=== PATIENT | female | born 1990 | race African-American/Black ===

== ENCOUNTER 2018-11-02 15:38 | Emergency (ER) | payer OTHER, SELFPAY ==
[2018-11-02 16:26] LABS: Pregnancy Test - Urine (BHCG) Negative (Negative); Pregu Control Background? CLEAR/WHITE (CLR/WHITE); Pregu Control Bar Appear? YES (CONTROL BAR); Specific Gravity 1.019 (1.002-1.036)
[2018-11-02 16:27] LABS: Bilirubin Negative (Negative); Blood, Urine Negative (Negative); Clarity Slightly Cloudy (Clear); Glucose, Urine (Dipstick) Negative (Negative); Leukocyte Negative (Negative); Nitrite Negative (Negative); Protein, Urine (Dipstick) Negative (Neg-Trace); Urobilinogen 0.2 mg/dL (Less than 2)
[2018-11-02 17:44] LABS: #Basophils 0.1 thou/uL (0.0-0.2); #Lymphocytes 3.2 thou/uL (1.20-3.40); #Monocytes 0.4 thou/uL (0.11-0.59); #Neutrophils 3.8 thou/uL (1.40-6.50); %Basophils 1.4 % (0.0-1.0); %Eosinophils 0.5 % (0.0-10.0); %Lymphocytes 42.6 % (21.0-51.0); %Monocytes 4.7 % (0.0-10.0); %Neutrophils 50.9 % (42.0-75.0); Hemoglobin 12.7 g/dL (12.0-16.0); Mean Corpuscular HGB CONC 32.6 g/dL (32.0-36.0); Mean Corpuscular Hemoglobin 27.1 pg (27.0-31.0); Mean Corpuscular Volume 83.3 fL (78.0-98.0); Mean Platelet Volume 9.7 fL (7.4-10.4); Platelet Count 275 thou/uL (130-400); RBC Distribution Width 12.7 % (11.5-14.5); Red Blood Cell (RBC) Count 4.69 mill/uL (4.20-5.40); White Blood Cell (WBC) Count 7.4 thou/uL (4.8-10.8)
[2018-11-02] MEDS ORDERED: Ketorolac Tromethamine 30 MG/ML VIAL ONE (17:52)
[2018-11-02 17:56] LABS: Anion Gap 13 mmol/L (10-20); BUN (Urea Nitrogen) 9 mg/dL (7.0-18.7); Calc. Creatinine Clearance 0 mL/min (70-130); Calcium 9.4 mg/dL (7.8-10.44); Carbon Dioxide 25 mmol/L (22-29); Chloride 104 mmol/L (98-107); Estimated GFR-MDRD Greater than 90; Glucose 80 mg/dL (70-105); Potassium 3.4 mmol/L (3.5-5.1); Sodium 139 mmol/L (136-145)
--- NOTE | 2018-11-02 18:13 | RAD ---
TWO VIEWS LUMBOSACRAL SPINE: Comparison: None. History: Low back pain radiating down both legs for a couple of weeks. FINDINGS: Two views of the lumbosacral spine shows normal height and alignment of the vertebral bodies and inte rvertebral discs without fracture or subluxation. No degenerative changes are seen. IMPRESSION: Unremarkable exam. POS: To
[2018-11-02] MEDS ORDERED: Morphine 10 MG/ML VIAL ONE (20:07)
--- NOTE | 2018-11-02 21:20 | MRI ---
MRI LUMBAR SPINE WITH AND WITHOUT IV CONTRAST: HISTORY: Back pain. Bilateral lower extremity paresthesias. Elevated ESR. Right low back pain radiating to the right leg with paresthesias to the bilateral legs, from the knees distally. No injury. UTI a fe w weeks ago, which has been treated. No current dysuria, urinary retention, or fecal incontinence. No fever. Exam requested to rule out epidural abscess. FINDINGS: The vertebral body heights and marrow signal are maintained. The disk spaces, signal, and height are also maintained. No focal disk herniation, central canal stenosis, or neural foraminal stenosis is seen. The conus medullaris ends at L1. No abnormal post contrast enhancement is seen. No epidural fluid collection is identified. The paraspinal musculature is normal. IMPRESSION: No significant abnormalities are identified. POS: SEPIDEH
== END 2018-11-02 21:25 | disposition home or self-care (01) ==
LOC: SCSER 15:38
DX: K52.9 Noninfective gastroenteritis and colitis, unspecified (principal); I47.1 Supraventricular tachycardia
CPT/HCPCS: 36415; 72100; 72158; 80048; 81003; 81025; 85025; 85652; J1885; J2270

== ENCOUNTER 2019-01-12 17:37 | Emergency (ER) | payer SELFPAY ==
[2019-01-12] MEDS ORDERED: Acetaminophen 500 MG TAB ONE (18:17)
[2019-01-12 18:25] LABS: #Eosinphils 0.1 thou/uL (0.0-0.7); #Lymphocytes 3.4 thou/uL (1.20-3.40); #Monocytes 0.6 thou/uL (0.11-0.59); #Neutrophils 4.2 thou/uL (1.40-6.50); %Basophils 0.5 % (0.0-1.0); %Eosinophils 1.2 % (0.0-10.0); %Lymphocytes 40.9 % (21.0-51.0); %Monocytes 7.4 % (0.0-10.0); Hemoglobin 11.6 g/dL (12.0-16.0); Mean Corpuscular HGB CONC 33.3 g/dL (32.0-36.0); Mean Corpuscular Hemoglobin 28.8 pg (27.0-31.0); Mean Corpuscular Volume 86.4 fL (78.0-98.0); Mean Platelet Volume 8.9 fL (7.4-10.4); Platelet Count 245 thou/uL (130-400); RBC Distribution Width 12.1 % (11.5-14.5); Red Blood Cell (RBC) Count 4.01 mill/uL (4.20-5.40); White Blood Cell (WBC) Count 8.3 thou/uL (4.8-10.8)
[2019-01-12 18:41] LABS: Bacteria/HPF None Seen HPF (None Seen); Bilirubin Negative (Negative); Blood, Urine Negative (Negative); Clarity Clear (Clear); Glucose, Urine (Dipstick) Normal (Negative); Leukocyte Negative Leu/uL (Negative); Nitrite Negative (Negative); Protein, Urine (Dipstick) 30 mg/dL (Neg-Trace); RBC/HPF 0-3 HPF (0-3); WBC/HPF 0-3 HPF (0-3)
--- NOTE | 2019-01-12 18:59 | ULT ---
EXAM: Pelvic ultrasound HISTORY: Pelvic pain COMPARISON: None TECHNIQUE: Multiple grayscale and color Doppler images were obtained in a transabdominal and transvag inal pelvic ultrasound. Spectral analysis of the Doppler waveforms of the ovaries were performed. FINDINGS: CERVIX: No evidence of nabothian cysts. UTERUS: There is a questionable small anechoic gestational sac within the uterus. This has a mean sac diameter of 0.46 cm which would estimate gestational age of 5 weeks 2 days. No pole or yolk sac are seen at this time. No free fluid is seen in the pelvis. RIGHT OVARY: Normal flow without focal mass. LEFT OVARY: Normal flow without focal mass. IMPRESSION: Possible early intrauterine
[2019-01-14 21:04] LABS: Chlamydia by PCR Not Detected (NotDetected); GC by PCR Not Detected (NotDetected)
== END 2019-01-12 20:41 | disposition home or self-care (01) ==
LOC: ERS 17:37
DX: O99.89 Other specified diseases and conditions complicating pregnancy, childbirth and the puerperium (principal); R10.30 Lower abdominal pain, unspecified; O99.281 Endocrine, nutritional and metabolic diseases complicating pregnancy, first trimester; E78.5 Hyperlipidemia, unspecified; F41.9 Anxiety disorder, unspecified; F32.9 Major depressive disorder, single episode, unspecified; Z79.899 Other long term (current) drug therapy
CPT/HCPCS: 36415; 51701; 76856; 81003; 81015; 84702; 85025; 86900; 86901; 87480; 87491; 87510; 87591; 87660; A4353

== ENCOUNTER 2019-01-31 12:27 | Emergency (ER) | payer MEDICAID, OTHER ==
[2019-01-31] MEDS ORDERED: Promethazine HCl 25 MG/ML VIAL ONE (13:08)
[2019-01-31 13:25] LABS: #Eosinphils 0.1 thou/uL (0.0-0.7); #Lymphocytes 2.7 thou/uL (1.20-3.40); #Monocytes 0.6 thou/uL (0.11-0.59); #Neutrophils 4.3 thou/uL (1.40-6.50); %Basophils 0.6 % (0.0-1.0); %Eosinophils 0.7 % (0.0-10.0); %Lymphocytes 34.8 % (21.0-51.0); %Monocytes 7.2 % (0.0-10.0); %Neutrophils 56.7 % (42.0-75.0); Hemoglobin 12.1 g/dL (12.0-16.0); Mean Corpuscular HGB CONC 34.4 g/dL (32.0-36.0); Mean Corpuscular Hemoglobin 28.8 pg (27.0-31.0); Mean Corpuscular Volume 83.7 fL (78.0-98.0); Mean Platelet Volume 8.8 fL (7.4-10.4); Platelet Count 255 thou/uL (130-400); RBC Distribution Width 11.5 % (11.5-14.5); Red Blood Cell (RBC) Count 4.19 mill/uL (4.20-5.40); White Blood Cell (WBC) Count 7.6 thou/uL (4.8-10.8)
[2019-01-31 13:35] LABS: Bilirubin Negative (Negative); Blood, Urine Negative (Negative); Clarity Clear (Clear); Glucose, Urine (Dipstick) Normal (Negative); Leukocyte Negative Leu/uL (Negative); Nitrite Negative (Negative); Protein, Urine (Dipstick) 10 mg/dL (Neg-Trace); Urobilinogen Normal mg/dL (Less than 2)
[2019-01-31 13:46] LABS: ALT (SGPT) 10 U/L (8-55); AST (SGOT) 13 U/L (5-34); Albumin 3.9 g/dL (3.5-5.0); Alkaline Phosphatase 54 U/L (40-110); Anion Gap 11 mmol/L (10-20); BUN (Urea Nitrogen) 5 mg/dL (7.0-18.7); Bilirubin, Total 0.2 mg/dL (0.2-1.2); Calc. Creatinine Clearance 0 mL/min (70-130); Calcium 9.2 mg/dL (7.8-10.44); Carbon Dioxide 23 mmol/L (22-29); Chloride 104 mmol/L (98-107); Estimated GFR-MDRD Greater than 90; Globulin 3.4 g/dL (2.4-3.5); Glucose 77 mg/dL (70-105); Potassium 3.2 mmol/L (3.5-5.1); Protein, Total 7.3 g/dL (6.0-8.3); Sodium 135 mmol/L (136-145)
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
== END 2019-01-31 16:17 | disposition home or self-care (01) ==
LOC: ERS 12:27
DX: O21.1 Hyperemesis gravidarum with metabolic disturbance (principal); E86.0 Dehydration; E78.5 Hyperlipidemia, unspecified; E78.00 Pure hypercholesterolemia, unspecified; O99.341 Other mental disorders complicating pregnancy, first trimester; F41.9 Anxiety disorder, unspecified; F32.9 Major depressive disorder, single episode, unspecified; Z3A.01 Less than 8 weeks gestation of pregnancy
CPT/HCPCS: 76856; 80053; 81003; 84702; 85025; 93976; 96361; 96365; J2550

== ENCOUNTER 2019-02-04 07:48 | Emergency (ER) | payer OTHER ==
[2019-02-04 08:11] LABS: #Eosinphils 0.1 thou/uL (0.0-0.7); #Monocytes 0.4 thou/uL (0.11-0.59); #Neutrophils 4.1 thou/uL (1.40-6.50); %Basophils 0.5 % (0.0-1.0); %Eosinophils 0.8 % (0.0-10.0); %Lymphocytes 30.2 % (21.0-51.0); %Monocytes 6.5 % (0.0-10.0); %Neutrophils 62.1 % (42.0-75.0); Hemoglobin 11.9 g/dL (12.0-16.0); Mean Corpuscular HGB CONC 34.5 g/dL (32.0-36.0); Mean Corpuscular Hemoglobin 28.9 pg (27.0-31.0); Mean Corpuscular Volume 83.9 fL (78.0-98.0); Mean Platelet Volume 8.6 fL (7.4-10.4); Platelet Count 257 thou/uL (130-400); RBC Distribution Width 11.8 % (11.5-14.5); Red Blood Cell (RBC) Count 4.11 mill/uL (4.20-5.40); White Blood Cell (WBC) Count 6.6 thou/uL (4.8-10.8)
[2019-02-04 08:30] LABS: ALT (SGPT) 10 U/L (8-55); AST (SGOT) 12 U/L (5-34); Albumin 3.6 g/dL (3.5-5.0); Alkaline Phosphatase 48 U/L (40-110); Anion Gap 9 mmol/L (10-20); BUN (Urea Nitrogen) 4 mg/dL (7.0-18.7); Bilirubin, Total 0.3 mg/dL (0.2-1.2); Calc. Creatinine Clearance 0 mL/min (70-130); Calcium 8.8 mg/dL (7.8-10.44); Carbon Dioxide 25 mmol/L (22-29); Chloride 105 mmol/L (98-107); Estimated GFR-MDRD Greater than 90; Globulin 3.3 g/dL (2.4-3.5); Glucose 85 mg/dL (70-105); Potassium 3.6 mmol/L (3.5-5.1); Protein, Total 6.9 g/dL (6.0-8.3); Sodium 135 mmol/L (136-145)
[2019-02-04] MEDS ORDERED: Promethazine HCl 25 MG/ML VIAL ONE (08:40)
--- NOTE | 2019-02-04 09:39 | ULT ---
PELVIC ULTRASOUND: HISTORY: patient. Fullness pain and nausea. COMPARISON: 01/31/2019. TECHNIQUE: Transabdominal imaging of the pelvis is performed. Ovaries are interrogated with grayscale, color bacilio w, Doppler imaging and spectral waveform analysis. FINDINGS: Uterus is identified measuring 11.5 x 7.6 x 8.2 cm. No myometrial masses. Single intrauterine gestation with heart tones of 137 bpm. There is a yolk sac. Gestational sac diameter is 3.25 cm corresponding to gestational age of 8 weeks 3 days. [place]-rump length is 1.69 cm corresponding to a gestational age of 8 weeks 1 day. There are 2 areas o f hypoechogenicity adjacent to the gestational sac suggesting subchorionic hemorrhage. Largest focus appears to be 1.1 x 3.4 x 0.7 cm. Left ovary has a normal echotexture measuring 3.6 x 2.7 x 2.8 cm. Right ovary is not appreciated. No masses or fluid in the right adnexa. Ovarian Doppler: Vascular flow to left. IMPRESSION: 1. Single intrauterine gestation with heart tones. Gestational age by crown-rump length is 8 we eks 1 day. 2. Subchorionic hemorrhage. Transcribed Date/Time: 02/04/2019 10:12 AM
--- NOTE | 2019-02-04 09:47 | RAD ---
PORTABLE CHEST ONE VIEW: 02/04/2019 8:15 a.m. HISTORY: Chest pain. The patient is 8 weeks' . COMPARISON: 03/14/2015 FINDINGS: The heart size is normal. The lungs are well expanded without focal areas of consolidation, pneumoth oraces or pleural effusions. IMPRESSION: No radiographic evidence of acute cardiopulmonary process. POS: OFF
[2019-02-04] MEDS ORDERED: Morphine 4 MG/ML VIAL ONE (11:52)
[2019-02-04] MEDS ORDERED: Acetaminophen 325 MG TAB ONE (11:52)
[2019-02-04] MEDS ORDERED: HYDROcodone/Acetaminophen 10/325 mg Tablet ONE (12:47)
--- NOTE | 2019-02-07 02:48 | EKG ---
Test Reason : Blood Pressure : / mmHG Vent. Rate : 098 BPM Atrial Rate : 098 BPM P-R Int : 152 ms QRS Dur : 068 ms QT Int : 340 ms P-R-T Axes : 050 002 -06 degrees QTc Int : 434 ms Sinus rhythm with marked sinus arrhythmia Possible Left atrial enlargement Cannot rule out Anterior infarct , age undetermined Abnormal ECG Confirmed by MARLENI CALLES, PEDRO ([id number]), index editor ОЛЬГА MORRIS ([id number]) on 02/07/2019 2:48:24 AM Referred By: Confirmed By:PEDRO YEPEZ MD
== END 2019-02-04 13:40 | disposition home or self-care (01) ==
LOC: ERS 07:48
DX: O99.89 Other specified diseases and conditions complicating pregnancy, childbirth and the puerperium (principal); R10.9 Unspecified abdominal pain; R11.2 Nausea with vomiting, unspecified; Z3A.08 8 weeks gestation of pregnancy
CPT/HCPCS: 36415; 71045; 76856; 80053; 83690; 84702; 85025; 93005; 93976; 96361; 96365; J2270; J2550

== ENCOUNTER 2019-02-07 19:33 | Emergency (ER) | payer OTHER ==
[2019-02-07 19:57] LABS: Bilirubin Negative (Negative); Blood, Urine Negative (Negative); Clarity Clear (Clear); Glucose, Urine (Dipstick) Normal (Negative); Leukocyte Negative Leu/uL (Negative); Nitrite Negative (Negative); Protein, Urine (Dipstick) Negative (Neg-Trace)
[2019-02-07 20:50] LABS: #Basophils 0.1 thou/uL (0.0-0.2); #Eosinphils 0.1 thou/uL (0.0-0.7); #Lymphocytes 2.6 thou/uL (1.20-3.40); #Monocytes 0.8 thou/uL (0.11-0.59); #Neutrophils 4.7 thou/uL (1.40-6.50); %Basophils 0.7 % (0.0-1.0); %Eosinophils 0.8 % (0.0-10.0); %Lymphocytes 31.9 % (21.0-51.0); %Monocytes 9.1 % (0.0-10.0); %Neutrophils 57.5 % (42.0-75.0); Mean Corpuscular Hemoglobin 28.9 pg (27.0-31.0); Mean Corpuscular Volume 84.9 fL (78.0-98.0); Mean Platelet Volume 8.3 fL (7.4-10.4); Platelet Count 257 thou/uL (130-400); RBC Distribution Width 11.7 % (11.5-14.5); Red Blood Cell (RBC) Count 3.81 mill/uL (4.20-5.40); White Blood Cell (WBC) Count 8.2 thou/uL (4.8-10.8)
[2019-02-07 21:01] LABS: ALT (SGPT) 14 U/L (8-55); AST (SGOT) 14 U/L (5-34); Albumin 3.6 g/dL (3.5-5.0); Alkaline Phosphatase 50 U/L (40-110); Anion Gap 9 mmol/L (10-20); BUN (Urea Nitrogen) 7 mg/dL (7.0-18.7); Bilirubin, Total Less than 0.2 mg/dL (0.2-1.2); Calc. Creatinine Clearance 0 mL/min (70-130); Calcium 8.8 mg/dL (7.8-10.44); Carbon Dioxide 23 mmol/L (22-29); Chloride 105 mmol/L (98-107); Estimated GFR-MDRD Greater than 90; Globulin 3.2 g/dL (2.4-3.5); Glucose 82 mg/dL (70-105); Lipase 20 U/L (8-78); Protein, Total 6.8 g/dL (6.0-8.3); Sodium 133 mmol/L (136-145)
[2019-02-07] MEDS ORDERED: diphenhydrAMINE 50 MG/ML VIAL ONE (21:59)
== END 2019-02-07 23:14 | disposition home or self-care (01) ==
LOC: ERS 19:33
DX: O99.89 Other specified diseases and conditions complicating pregnancy, childbirth and the puerperium (principal); R10.30 Lower abdominal pain, unspecified; O21.9 Vomiting of pregnancy, unspecified; Z3A.01 Less than 8 weeks gestation of pregnancy
CPT/HCPCS: 36415; 80053; 81003; 83690; 85025; 96361; 96374; J1200

== ENCOUNTER 2019-02-11 14:59 | Inpatient (IN) | payer OTHER ==
[2019-02-11 15:39] LABS: #Basophils 0.1 thou/uL (0.0-0.2); #Lymphocytes 2.5 thou/uL (1.20-3.40); #Monocytes 0.7 thou/uL (0.11-0.59); #Neutrophils 5.1 thou/uL (1.40-6.50); %Basophils 0.7 % (0.0-1.0); %Eosinophils 0.5 % (0.0-10.0); %Lymphocytes 30.2 % (21.0-51.0); %Monocytes 7.9 % (0.0-10.0); %Neutrophils 60.6 % (42.0-75.0); Hemoglobin 12.9 g/dL (12.0-16.0); Mean Corpuscular HGB CONC 34.2 g/dL (32.0-36.0); Mean Corpuscular Hemoglobin 28.8 pg (27.0-31.0); Mean Corpuscular Volume 84.4 fL (78.0-98.0); Mean Platelet Volume 8.2 fL (7.4-10.4); Platelet Count 312 thou/uL (130-400); RBC Distribution Width 11.8 % (11.5-14.5); Red Blood Cell (RBC) Count 4.49 mill/uL (4.20-5.40); White Blood Cell (WBC) Count 8.3 thou/uL (4.8-10.8)
[2019-02-11 16:01] LABS: ALT (SGPT) 22 U/L (8-55); AST (SGOT) 20 U/L (5-34); Albumin 4.1 g/dL (3.5-5.0); Alkaline Phosphatase 66 U/L (40-110); Anion Gap 10 mmol/L (10-20); BUN (Urea Nitrogen) 6 mg/dL (7.0-18.7); Bilirubin, Total 0.2 mg/dL (0.2-1.2); Calc. Creatinine Clearance 0 mL/min (70-130); Calcium 9.1 mg/dL (7.8-10.44); Carbon Dioxide 25 mmol/L (22-29); Chloride 101 mmol/L (98-107); Estimated GFR-MDRD Greater than 90; Globulin 3.8 g/dL (2.4-3.5); Glucose 98 mg/dL (70-105); Potassium 3.3 mmol/L (3.5-5.1); Protein, Total 7.9 g/dL (6.0-8.3); Sodium 133 mmol/L (136-145)
[2019-02-11] MEDS ORDERED: Promethazine HCl 25 MG/ML VIAL ONE (16:01)
[2019-02-11 16:28] LABS: Bilirubin Negative (Negative); Blood, Urine Negative (Negative); Clarity Clear (Clear); Glucose, Urine (Dipstick) Normal (Negative); Leukocyte Negative Leu/uL (Negative); Nitrite Negative (Negative); Protein, Urine (Dipstick) 20 mg/dL (Neg-Trace); Urobilinogen 3 mg/dL (Less than 2)
[2019-02-11 19:49] VITALS: BMI 34.7
[2019-02-11] MEDS ORDERED: Promethazine HCl 25 MG/ML VIAL IM PRN (20:08)
[2019-02-11] MEDS ORDERED: Zolpidem Tartrate 5 MG TAB PO PRN (20:08)
--- NOTE | 2019-02-11 20:14 | PDOC.LDHP ---
Labor and Delivery H&P Chief complaint: other (N/V x 3 weeks) HPI: 28 yo BF presents c/o N/V x 2-3 weeks with multiple visits to ER> Denies bleeding or cramping. Current gestational age (weeks): 9 Dating criteria: last menstrual period Grav: 5 Para: 3 OB History Details: PNC with Dr. Euceda at [facility], tx. with Phenergan and B12 this . H/o of x3, all . Current complications: other (as above) Abnormal US findings: No Past Medical History: none Current medications: pre-roberto vitamins, other (Phenergan, B12) Previous surgical history: dilation and curettage Allergies/Adverse Reactions: Allergies Allergy/AdvReac Type Severity Reaction Status Date / Time ondansetron [From Zofran] Allergy Verified 02/11/19 19:29 Penicillins Allergy Verified 02/11/19 19:29 tramadol Allergy Verified 02/11/19 19:29 Social history: none - Physical Exam Vital signs reviewed and normal: yes General: resting Heart: RRR Lungs: CTAB Extremeties: no edema [place] contractions every: N/A - Assessment 9 week IUP hyperemesis with multiple visits to ER - Plan -: OBS for IV fluids and antiemetics, observe closely. Dr. Euceda notified.
[2019-02-11] MEDS ORDERED: Lactated Ringer's 1,000 ML IV SCH (20:15)
[2019-02-11] MEDS: Famotidine/PF 20 mg/2ml Vial SLOW IVP SCH (21:06)
[2019-02-11] MEDS: Metoclopramide HCl 10 MG/2 ML VIAL IVP SCH (21:06)
[2019-02-11] MEDS: Dextrose 5%-Lactated Ringers 1,000 ML IV SCH (21:06)
--- NOTE | 2019-02-11 21:13 | PDOC.EVN ---
Event Note - Event Note Event Note: Labs on admit: WBC= 8.3, H/H= 12.9/37.9, plts= 312K Au=450, K= 3.3, Cr= .73, glucose=98, T. bili= .2, AST/ALT= 20/22 Urine- trace ketones.
[2019-02-12] MEDS: Dextrose 5%-Lactated Ringers 1,000 ML IV SCH ×3 (04:08→19:46)
[2019-02-12 05:58] LABS: ALT (SGPT) 16 U/L (8-55); AST (SGOT) 14 U/L (5-34); Alkaline Phosphatase 48 U/L (40-110); Anion Gap 9 mmol/L (10-20); BUN (Urea Nitrogen) 4 mg/dL (7.0-18.7); Bilirubin, Total 0.3 mg/dL (0.2-1.2); Calc. Creatinine Clearance 168 mL/min (70-130); Calcium 7.9 mg/dL (7.8-10.44); Carbon Dioxide 22 mmol/L (22-29); Chloride 108 mmol/L (98-107); Estimated GFR-MDRD Greater than 90; Globulin 2.9 g/dL (2.4-3.5); Glucose 111 mg/dL (70-105); Potassium 3.6 mmol/L (3.5-5.1); Protein, Total 5.9 g/dL (6.0-8.3); Sodium 135 mmol/L (136-145)
[2019-02-12] MEDS: Acetaminophen 325 MG TAB PO PRN (05:58)
--- NOTE | 2019-02-12 06:49 | PDOC.EVN ---
Event Note - Event Note Event Note: 9 2/7 weeks. Feeling only some better this AM. VSS AF. Abdomen is soft and NT. No vaginal bleeding. Labs return this AM with Na and K in normal range. Plan: Advance to clears as tolerated. Home when tolerating PO.
[2019-02-12] MEDS ORDERED: Multivit, Adult Inj 10 ML VIAL IV SCH (08:15)
[2019-02-12] MEDS ORDERED: Acetaminophen 1,000 MG in Premix Bag 1 BAG IVPB PRN (08:24)
[2019-02-12] MEDS ORDERED: LACTATED RINGERS IV SCH (08:30)
[2019-02-12] MEDS ORDERED: MULTIVITAMINS IV SCH (08:30)
[2019-02-12] MEDS ORDERED: DEXTROSE IV SCH (08:30)
[2019-02-12] MEDS: Metoclopramide HCl 10 MG/2 ML VIAL IVP SCH ×2 (08:31→21:09)
[2019-02-12] MEDS: Famotidine/PF 20 mg/2ml Vial SLOW IVP SCH ×2 (08:31→21:09)
[2019-02-12] MEDS: Ondansetron PF 4 MG/2 ML Vial IVP SCH ×3 (09:24→21:09)
[2019-02-12] MEDS: Docusate Calcium (SURFAK) 240 MG CAP PO SCH ×2 (09:26→21:07)
[2019-02-12] MEDS: Doxylamine 25 MG TAB PO SCH ×2 (09:26→21:07)
[2019-02-12] MEDS: pyridOXINE 50 MG (B6) TAB PO SCH ×2 (09:26→21:08)
[2019-02-12] MEDS ORDERED: Promethazine HCl 25 MG/ML VIAL SLOW IVP SCH ×2 (12:15)
[2019-02-12] MEDS ORDERED: Promethazine HCl 25 MG in Sodium Chloride 0.9% 50 ML IVPB PRN (19:15)
[2019-02-12] MEDS: Calcium Carbonate 500 MG ChewTAB PO PRN (21:06)
[2019-02-13] MEDS: Calcium Carbonate 500 MG ChewTAB PO PRN (00:46)
[2019-02-13] MEDS: Acetaminophen 325 MG TAB PO PRN ×2 (00:46→10:21)
[2019-02-13] MEDS: Dextrose 5%-Lactated Ringers 1,000 ML IV SCH ×2 (02:43→21:30)
[2019-02-13] MEDS: Ondansetron PF 4 MG/2 ML Vial IVP SCH ×3 (02:43→18:46)
--- NOTE | 2019-02-13 06:22 | PDOC.OBAPN ---
FMR OB AP PN: Sub - Interval History Hospital Day: 3 Indentification: 28YO @ 9.2 WGA Interval History: NAEO. No vomiting since date of admission. Tolerating clear liquids well. FMR OB AP PN: Obj - Maternal Vital signs: BP: 99/54 HR: 86 RR: 16 Tmax: 99F Pox: 99% on RA Wt: 86.2 kg - Urine output I&O: 02/11/19 02/12/19 02/13/19 06:59 06:59 06:59 Intake Total 1393 Balance 1393 FMR OB AP PN: Exam - Physical Exam General: NAD, awake, alert and oriented HEENT: MMM, grossly normal vision, grossly normal hearing Neck: supple, FROM Heart: RRR, normal S1/S2 General: CTAB, no respiratory distress, good air movement, no rales/rhonchi, no wheezing, no retractions Abdomen: soft, non-tender, bowel sound present Musculoskeletal: FROM in all four extremities Neurological: cranial nerves II through XII intact, sensation to pain,touch and proprioception grossly normal, no focal deficit Skin: no rash, good tugor, capillary refill <2 seconds Lymphatic: no unusual bruising or bleeding, no purpura, no petechia Psychiatric: intact recent and remote memory, good judgement and insight, normal mood and affect FMR OB AP PN: A/P - Problem List (1) Hyperemesis affecting , antepartum Current Visit: Yes Status: Acute Code(s): O21.0 - MILD HYPEREMESIS GRAVIDARUM (2) Current Visit: Yes Status: Acute Qualifiers: Weeks of gestation: 9 weeks Qualified Code(s): Z3A.09 - 9 weeks gestation of Disposition: 28YO @ 9.2 WGA who presented to the ED for intractable N/V & was admitted for hyperemesis gravidarum. Hyperemesis gravidarum: - Patient has been doing well on RICH antiemetics and has not vomited since the date of admission. Tolerating clears well. Will consider escalating diet further today. - Will de-escalate IVFs today as well. sIUP @ ~9.2 WGA: - Aware, will resume PNVs since tolerating PO. - Will instruct to keep regularly RICH appts w/ PCP as an outpatient. Dispo: Will advance diet as tolerated today & consider discharging later today with anti-emetics if able to fully tolerate PO. Discussion: Date/Time: 02/13/19619 This H&P was discussed with Dr. Alexander who agrees with the above documentation and plan.
[2019-02-13] MEDS: Metoclopramide HCl 10 MG/2 ML VIAL IVP SCH (10:20)
[2019-02-13] MEDS: Famotidine/PF 20 mg/2ml Vial SLOW IVP SCH ×2 (10:20→22:06)
[2019-02-13] MEDS: pyridOXINE 50 MG (B6) TAB PO SCH ×2 (10:21→22:01)
[2019-02-13] MEDS: Doxylamine 25 MG TAB PO SCH ×2 (10:21→22:01)
[2019-02-13] MEDS: Docusate Calcium (SURFAK) 240 MG CAP PO SCH ×2 (10:22→22:01)
--- NOTE | 2019-02-13 15:18 | PDOC.EVN ---
Event Note - Event Note Event Note: Pt tolerating diet with nausea regimen. will change to po now and continue in house care. now on phenergan/reglan/b6/unisom. Will reevaluate tomorrow after breakfast. May be ready for d/c tomorrow afternoon.
[2019-02-13] MEDS ORDERED: Metoclopramide 10 MG/10 ML UDCUP PO SCH (17:00)
[2019-02-13] MEDS: Metoclopramide HCl 10 MG TAB PO SCH ×2 (17:45→22:01)
[2019-02-13] MEDS: Promethazine 25 MG TAB PO SCH (18:44)
[2019-02-13] MEDS ORDERED: Famotidine 20 MG TAB PO SCH (21:45)
[2019-02-14] MEDS: Promethazine 25 MG TAB PO SCH ×3 (00:24→11:08)
[2019-02-14] MEDS: Dextrose 5%-Lactated Ringers 1,000 ML IV SCH ×2 (00:27→11:10)
--- NOTE | 2019-02-14 07:36 | PRG ---
DATE OF SERVICE: 02/14/2019 SUBJECTIVE: The patient is a 28-year-old female with an intrauterine about 9 weeks, diagnosed with hyperemesis gravidarum. The patient has been able to maintain a regular diet on scheduled Reglan, Phenergan, B6 and Unisom with her dinner last night. The patient is experiencing some cramping this morning that has made her concerned about the status of her , that it is not very painful, but present. OBJECTIVE: VITAL SIGNS: Blood pressure 104/51, pulse of 101, temperature 99.4, respiratory rate of 18. GENERAL: She appears to be in no acute distress. She was sleeping when I came and was easily aroused. ASSESSMENT AND PLAN: The patient is a 28-year-old female in the hospital day 2 for admission for hyperemesis gravidarum. She seems to be tolerating a diet well on Reglan, Phenergan, B6 and Unisom with dinner last night. We will continue this regimen orally today and see if she is able to keep breakfast and lunch down. Should that be the case, the patient can go home on these medications with followup early in the week with her primary OB, Dr. Euceda. Ultrasound will be ordered this morning to confirm viability of this at 9 weeks. Job ID: [id number]
[2019-02-14] MEDS ORDERED: Famotidine 20 MG TAB PO SCH (09:00)
[2019-02-14] MEDS: Metoclopramide HCl 10 MG TAB PO SCH ×2 (09:02→11:08)
[2019-02-14] MEDS: Docusate Calcium (SURFAK) 240 MG CAP PO SCH (09:02)
[2019-02-14] MEDS: Doxylamine 25 MG TAB PO SCH (09:02)
[2019-02-14] MEDS: pyridOXINE 50 MG (B6) TAB PO SCH (09:03)
--- NOTE | 2019-02-14 09:35 | ULT ---
Ultrasound pelvis: DATE: 02/14/2019 HISTORY: 28-year-old female in first trimester of . Evaluate viability. FINDINGS: Uterus: 11.5 x 8.5 x 2.5 cm. Intrauterine gestational sac at fundus. pole crown-rump length 2.8 cm corresponding to 9 weeks 4 days gestational age. heart rate: 175 bpm. No subchorionic hemorrhage visualized. No free fluid in the cul-de-sac. 2.5 x 2 x 1.5 cm left hypoechoic solid-appearing mass.. Right ovary: 3 x 3.5 x 3 cm. Flow not detected, probably due to technical factors. Left ovary: 3 x 3 x 4.5 cm. Flow detected. IMPRESSION: 1.) Live first trimester intrauterine gestation estimated to be 9 weeks 4 days gestational age. 2) no subchorionic hemorrhage. 3) 2.5 cm left ovarian mass may represent a hemorrhagic corpus luteal cyst.
[2019-02-14 12:15] VITALS: BP 100/65; TEMP 99
--- NOTE | 2019-02-14 13:25 | PDOC.EVN ---
Event Note - Event Note Event Note: Tolerated 50-75% of breakfast, reports some of it was cold which was why she did not eat 100% and tolerated 100% of lunch. Will plan to d/c home with scheduled antiemetics
--- NOTE | 2019-02-14 15:23 | DIS ---
DATE OF ADMISSION: 02/11/2019 DATE OF DISCHARGE: 02/14/2019 DIAGNOSES: 1. First trimester . 2. Persistent nausea and vomiting in . 3. Improved after IV fluid hydration. HOSPITAL COURSE: In brief, this patient was admitted by Dr. Sabas Osborn, who was on-call with a diagnosis of possible hyperemesis gravidarum. She was admitted for IV fluid hydration after first being evaluated in the emergency room. The patient's EGA is in the first trimester at about 9 to 10 weeks. PAST MEDICAL HISTORY: Includes anxiety and depression and history of herniated disk in the past. COURSE: In the ER, her temperature was 99.0, pulse was 94, respirations were 18, and blood pressure was 121/82. She was admitted for intravenous fluid hydration and adjustment of her antiemetic medication. While in this hospital visit, she did undergo a pelvic ultrasound on 02/14/2019, which was the day of discharge just to confirm viability. She was noted to have a live first trimester intrauterine gestation with an estimated due date of 9 weeks and 4 days, which was size equal to dates. She had a 2.5 cm left ovarian cyst which likely represents a corpus luteum cyst of . heart tones were 175 on ultrasound. Point to note that on this admission, she did have a complete metabolic profile which showed normal liver function tests and normal creatinine this admission. She was sent home on 02/14/2019, after being discharged by Dr. Claribel Ling, as was the plan from the previous SYSTEMS TECHNOLOGIST team. She will have her follow up with her SYSTEMS TECHNOLOGIST provider within one week. Job ID: [id number] MTDD
--- NOTE | 2019-02-16 04:25 | PQF ---
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 The previous sand conditioner machine team authorized DC which is what our oncall team completed. ___ Late entry note date: __ DATE: 02/16/19 ATTN: Peyman Torrez Please exercise your independent, professional judgment in responding to the clarification form. Clinical indicators are provided on the bottom of this form for your review Can you please further specify the clinical significance based on the clinical indicators below? Please check appropriate box(s): [ ] Hyponatremia [ ] Abnormal laboratory findings [ ] Other diagnosis please specify [ ] Unable to determine In addition, please specify: Present on Admission (POA): [ ] Yes [ ] No [ x ] Unable to determine For continuity of documentation, please document condition throughout progress notes and discharge summary. Thank You. CLINICAL INDICATORS - SIGNS / SYMPTOMS/ LABS are present in the medical record: Labs:Sodium 02/1139=669 02/1241=341 ED Notes 02/11 "patient presents for evaluation of nausea and vomiting" ED Notes 02/11 "inability to tolerate PO fluids or food" ED Notes 02/11 "patient reports being diagnosed with hyperemesis gravidarum" H and P 02/11 pg.89 yo BF presents c/o N/V x 2-3 weeks with multiple ER Visits RISK FACTORS Hyperemesis- H and P pg.1 02/11 9 weeks IUP- H and P pg.1 02/11 TREATMENT ED Notes 02/11-IVF DS 02/14-Monitor metabolic profile MAR 02/11-Phenergan 12.5mg IM (This form is maintained as a part of the permanent medical record) 2014 [employer], [employer]. All Rights Reserved Ashu [email or web address] [not provided] MTDD
== END 2019-02-14 14:11 | disposition home or self-care (01) | DRG 833 ==
LOC: ERS 14:59 → OBSVTOIN 17:08 → 3SE 17:08
PROVIDERS: ADMIT Obstetrics & Gynecology; ATTEND Obstetrics & Gynecology
DX: O21.0 Mild hyperemesis gravidarum (principal); O99.341 Other mental disorders complicating pregnancy, first trimester; O99.011 Anemia complicating pregnancy, first trimester; O99.281 Endocrine, nutritional and metabolic diseases complicating pregnancy, first trimester; Z3A.09 9 weeks gestation of pregnancy; F41.9 Anxiety disorder, unspecified; E78.5 Hyperlipidemia, unspecified; E78.00 Pure hypercholesterolemia, unspecified; D64.9 Anemia, unspecified; Z88.0 Allergy status to penicillin; Z88.5 Allergy status to narcotic agent; Z88.8 Allergy status to other drugs, medicaments and biological substances; F32.9 Major depressive disorder, single episode, unspecified; O34.81 Maternal care for other abnormalities of pelvic organs, first trimester; N83.292 Other ovarian cyst, left side
CPT/HCPCS: 36415; 76856; 80053; 81003; 85025; 93976; 96365; 96366; J2405; J2550; J2765; J7121; Q0169; S0028

== ENCOUNTER 2019-02-26 11:38 | Emergency (ER) | payer OTHER ==
[2019-02-26] MEDS ORDERED: Acetaminophen 500 MG TAB ONE (12:02)
[2019-02-26 12:42] LABS: Bilirubin Negative (Negative); Blood, Urine Negative (Negative); Clarity Clear (Clear); Glucose, Urine (Dipstick) Normal (Negative); Leukocyte Negative Leu/uL (Negative); Nitrite Negative (Negative); Protein, Urine (Dipstick) 20 mg/dL (Neg-Trace)
[2019-02-26 12:48] LABS: #Basophils 0.1 thou/uL (0.0-0.2); #Lymphocytes 2.1 thou/uL (1.20-3.40); #Monocytes 0.6 thou/uL (0.11-0.59); #Neutrophils 5.8 thou/uL (1.40-6.50); %Basophils 0.8 % (0.0-1.0); %Eosinophils 0.5 % (0.0-10.0); %Lymphocytes 24.4 % (21.0-51.0); %Monocytes 6.7 % (0.0-10.0); %Neutrophils 67.5 % (42.0-75.0); Hemoglobin 11.8 g/dL (12.0-16.0); Mean Corpuscular HGB CONC 33.3 g/dL (32.0-36.0); Mean Corpuscular Hemoglobin 28.5 pg (27.0-31.0); Mean Corpuscular Volume 85.5 fL (78.0-98.0); Mean Platelet Volume 7.9 fL (7.4-10.4); Platelet Count 312 thou/uL (130-400); RBC Distribution Width 11.8 % (11.5-14.5); Red Blood Cell (RBC) Count 4.14 mill/uL (4.20-5.40); White Blood Cell (WBC) Count 8.6 thou/uL (4.8-10.8)
[2019-02-26 13:11] LABS: ALT (SGPT) 13 U/L (8-55); AST (SGOT) 15 U/L (5-34); Albumin 3.5 g/dL (3.5-5.0); Alkaline Phosphatase 65 U/L (40-110); Anion Gap 15 mmol/L (10-20); BUN (Urea Nitrogen) 6 mg/dL (7.0-18.7); Bilirubin, Total 0.3 mg/dL (0.2-1.2); CK (CPK) 52 U/L (29-168); Calc. Creatinine Clearance 0 mL/min (70-130); Calcium 8.8 mg/dL (7.8-10.44); Carbon Dioxide 17 mmol/L (22-29); Chloride 105 mmol/L (98-107); Estimated GFR-MDRD Greater than 90; Globulin 3.6 g/dL (2.4-3.5); Glucose 67 mg/dL (70-105); Lipase 12 U/L (8-78); Potassium 3.6 mmol/L (3.5-5.1); Protein, Total 7.1 g/dL (6.0-8.3); Sodium 133 mmol/L (136-145)
== END 2019-02-26 13:11 | disposition home or self-care (01) ==
LOC: ERS 11:38
DX: O21.0 Mild hyperemesis gravidarum (principal); O99.89 Other specified diseases and conditions complicating pregnancy, childbirth and the puerperium; M54.9 Dorsalgia, unspecified; F41.9 Anxiety disorder, unspecified; E78.00 Pure hypercholesterolemia, unspecified; Z3A.11 11 weeks gestation of pregnancy; Z79.899 Other long term (current) drug therapy
CPT/HCPCS: 36415; 51701; 80053; 81003; 82550; 83690; 85025; 96360; A4353

== ENCOUNTER 2019-05-01 04:38 | Emergency (ER) | payer MEDICAID, OTHER ==
--- NOTE | 2019-05-01 04:57 | PDOC.EVN ---
Event Note - Event Note Event Note: 29yo at 20.3 wks. Assessed patient for "[place] No contractions," No signs of active labor, no vaginal bleeding. Complaining of chest pain and palpitations , sent to ER for further evaluation. Addendum - Attending - Attending Attestation Date/Time: 05/01/19 1026 I personally evaluated the patient and discussed the management with Dr. Ling. I agree with the Assessment and Plan documented above.
[2019-05-01 05:18] LABS: #Basophils 0.1 thou/uL (0.0-0.2); #Eosinphils 0.1 thou/uL (0.0-0.7); #Lymphocytes 2.4 thou/uL (1.20-3.40); #Monocytes 0.7 thou/uL (0.11-0.59); #Neutrophils 6.5 thou/uL (1.40-6.50); %Basophils 0.7 % (0.0-1.0); %Eosinophils 1.2 % (0.0-10.0); %Monocytes 6.7 % (0.0-10.0); %Neutrophils 66.5 % (42.0-75.0); Hemoglobin 10.9 g/dL (12.0-16.0); Mean Corpuscular HGB CONC 33.8 g/dL (32.0-36.0); Mean Corpuscular Hemoglobin 27.4 pg (27.0-31.0); Mean Corpuscular Volume 80.9 fL (78.0-98.0); Platelet Count 267 thou/uL (130-400); RBC Distribution Width 12.2 % (11.5-14.5); Red Blood Cell (RBC) Count 3.97 mill/uL (4.20-5.40); White Blood Cell (WBC) Count 9.8 thou/uL (4.8-10.8)
[2019-05-01 05:30] LABS: ALT (SGPT) 15 U/L (8-55); AST (SGOT) 18 U/L (5-34); Albumin 3.3 g/dL (3.5-5.0); Alkaline Phosphatase 72 U/L (40-110); Anion Gap 14 mmol/L (10-20); BUN (Urea Nitrogen) 6 mg/dL (7.0-18.7); Bilirubin, Total 0.2 mg/dL (0.2-1.2); Calc. Creatinine Clearance 0 mL/min (70-130); Calcium 8.7 mg/dL (7.8-10.44); Carbon Dioxide 19 mmol/L (22-29); Chloride 106 mmol/L (98-107); Estimated GFR-MDRD Greater than 90; Glucose 77 mg/dL (70-105); Potassium 3.9 mmol/L (3.5-5.1); Protein, Total 7.3 g/dL (6.0-8.3); Sodium 135 mmol/L (136-145)
== END 2019-05-01 06:05 | disposition home or self-care (01) ==
LOC: ERS 04:38
DX: O99.89 Other specified diseases and conditions complicating pregnancy, childbirth and the puerperium (principal); R07.2 Precordial pain; O99.012 Anemia complicating pregnancy, second trimester; O99.282 Endocrine, nutritional and metabolic diseases complicating pregnancy, second trimester; E78.00 Pure hypercholesterolemia, unspecified; O99.342 Other mental disorders complicating pregnancy, second trimester; F41.9 Anxiety disorder, unspecified; F32.9 Major depressive disorder, single episode, unspecified; Z3A.20 20 weeks gestation of pregnancy
CPT/HCPCS: 80053; 83880; 84484; 85025; 99284

== ENCOUNTER → 2019-05-01 | Day surgery (SDC) | payer MEDICAID, OTHER ==
[~2019-05-01] MED LIST: Lactated Ringer's 1,000 ML IV SCH; hydrALAZINE 20 MG/ML VIAL SLOW IVP PRN
[2019-05-01 03:44] VITALS: BMI 36.2
--- NOTE | 2019-05-01 04:23 | PDOC.FPROB ---
FMR OB H&P: HPI - History of Present Illness Chief Complaint: Contractions FMR OB H&P: Medications - Current Allergies/Adverse Reactions: Allergies Allergy/AdvReac Type Severity Reaction Status Date / Time ondansetron [From Zofran] Allergy Verified 05/01/19 03:39 Penicillins Allergy Verified 05/01/19 03:39 tramadol Allergy Verified 05/01/19 03:39 FMR OB H&P: A/P Discussion: Date/Time: 05/01/19 0423 This H&P was discussed with [] and [] who agree with the above documentation and plan.
== END ==
LOC: L&D/OP 02:37
PROVIDERS: ATTEND Obstetrics & Gynecology
DX: O99.89 Other specified diseases and conditions complicating pregnancy, childbirth and the puerperium (principal); R10.9 Unspecified abdominal pain; R07.9 Chest pain, unspecified; Z3A.00 Weeks of gestation of pregnancy not specified; Z88.0 Allergy status to penicillin; Z88.5 Allergy status to narcotic agent; Z88.8 Allergy status to other drugs, medicaments and biological substances
CPT/HCPCS: 99282

== ENCOUNTER 2019-06-12 21:23 | Emergency (ER) | payer MEDICAID | END 2019-06-12 23:42 | disposition left against medical advice (07) | LOC: ERS 21:23 | DX: O99.89 Other specified diseases and conditions complicating pregnancy, childbirth and the puerperium (principal); R10.9 Unspecified abdominal pain; O99.342 Other mental disorders complicating pregnancy, second trimester; F41.9 Anxiety disorder, unspecified; F32.9 Major depressive disorder, single episode, unspecified; O99.282 Endocrine, nutritional and metabolic diseases complicating pregnancy, second trimester; E78.00 Pure hypercholesterolemia, unspecified; Z3A.26 26 weeks gestation of pregnancy | CPT/HCPCS: 99283 ==

== ENCOUNTER 2019-06-24 00:20 | Day surgery (SDC) | payer MEDICAID, OTHER ==
[2019-06-24] MEDS ORDERED: hydrALAZINE 20 MG/ML VIAL SLOW IVP PRN (00:51)
[2019-06-24] MEDS ORDERED: Lactated Ringer's 1,000 ML IV SCH ×2 (01:00→02:00)
[2019-06-24 01:35] LABS: FFN Internal QC Analyzer PASS (PASS); FFN Internal QC Cassette PASS (PASS); Fetal Fibronectin Negative (Negative)
[2019-06-24 01:46] LABS: Amnisure Internal Control QC ACCEPTABLE (ACCEPTABLE); Amnisure Test No Membranes Rupture (No Rupture)
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
[2019-06-24] MEDS ORDERED: Calcium Carbonate 500 MG ChewTAB PO SCH (02:15)
== END 2019-06-24 02:36 | disposition home or self-care (01) ==
LOC: L&D/OP 00:20
PROVIDERS: ATTEND Obstetrics & Gynecology
DX: O47.03 False labor before 37 completed weeks of gestation, third trimester (principal); O21.2 Late vomiting of pregnancy; O99.013 Anemia complicating pregnancy, third trimester; D64.9 Anemia, unspecified; O99.283 Endocrine, nutritional and metabolic diseases complicating pregnancy, third trimester; E86.0 Dehydration; O99.613 Diseases of the digestive system complicating pregnancy, third trimester; K21.9 Gastro-esophageal reflux disease without esophagitis; O09.293 Supervision of pregnancy with other poor reproductive or obstetric history, third trimester; Z79.899 Other long term (current) drug therapy; Z3A.28 28 weeks gestation of pregnancy; Z88.0 Allergy status to penicillin; Z88.5 Allergy status to narcotic agent; Z88.8 Allergy status to other drugs, medicaments and biological substances
CPT/HCPCS: 82731; 84112; 96360; 96361; 99283

== ENCOUNTER 2019-07-03 01:44 | Day surgery (SDC) | payer OTHER ==
[2019-07-03 02:21] VITALS: BP 116/72; TEMP 97.9; BMI 37.8
[2019-07-03] MEDS ORDERED: hydrALAZINE 20 MG/ML VIAL SLOW IVP PRN (02:51)
--- NOTE | 2019-07-03 02:56 | PDOC.FPROB ---
FMR OB H&P: HPI - History of Present Illness Chief Complaint: Contractions Indentification: 29yo at 29.3wks History of Present Illness: 29yo at 29.3wks presents for back pain and contractions. Unable to report frequency but they are not constant. Denies LOF, vaginal bleeding/discharge. Has hx of labor x3, treated with progesterone until mid May this . Concerned she may have a UTI due to her pelvic and back pain, denies dysuria/frequency. Primary Care Physician: Dr Bob, [facility] FMR OB H&P: Current - Care : 5 Para: [id number] Gestational age: 29.3 FMR OB H&P: History - Past Medical History PMH: Unremarkable - OB History OB History: Hx of 3 deliveries (35wks, 31wks, 34wks) Received progesterone injections with second and this until mid May. 1 spontaneous at 15wks - Surgical History Sx History: Unremarkable - Social History Social History: Denies tobacco, alcohol and drug use - Family History Family History: Noncontributory FMR OB H&P: Medications - Current Home Medications: Medication Instructions Recorded Confirmed Type Docosahexaenoic Acid [ DHA] 200 mg PO DAILY 07/03/19 07/03/19 History Ferrous Sulfate [Iron] 325 mg PO DAILY 07/03/19 07/03/19 History Omeprazole Magnesium [Prilosec] 10 mg PO DAILY 07/03/19 07/03/19 History Ondansetron HCl [Zofran] 4 mg PO Q6HR PRN 07/03/19 07/03/19 History Allergies/Adverse Reactions: Allergies Allergy/AdvReac Type Severity Reaction Status Date / Time ondansetron [From Zofran] AdvReac Mild Headache Verified 07/03/19 02:12 Penicillins AdvReac Mild Verified 07/03/19 02:12 tramadol AdvReac Mild Headache Verified 07/03/19 02:12 FMR OB H&P: ROS - Review of Systems General: denies: fever/chills, fatigue ENT: denies: nasal congestion, rhinorrhea Respiratory: denies: cough, congestion, shortness of breath Gastrointestinal: reports: cramping, other (back pain). denies: abdominal pain , nausea, vomiting Genitourinary (Female): reports: vaginal pressure. denies: dysuria, vaginal discharge, vaginal bleeding Integumentary: denies: rash, lesions FMR OB H&P: Vital Signs - Maternal Vital signs: Vital Signs - First Documented Temp Pulse Resp BP Pulse Ox 97.9 F 110 H 18 116/72 96 07/03/19 02:08 07/03/19 02:08 07/03/19 02:08 07/03/19 02:08 07/03/19 02:08 - Heart Tones Baseline: 150 Variability: moderate Acceleration: present Deceleration: absent Category: category 1 FMR OB H&P: Physical Exam - Physical Exam General: NAD, awake, alert and oriented HEENT: normocephalic and atraumatic, MMM, conjunctiva clear, grossly normal hearing, oropharynx clear Neck: supple, trachea midline Heart: RRR, pulses present, no edema General: CTAB, no respiratory distress Abdomen: soft, gravid, non-tender, bowel sound present Musculoskeletal: normal gait and station, pulses present, no misalignment/ asymmetry Neurological: no focal deficit Skin: no rash Psychiatric: intact recent and remote memory, good judgement and insight, normal mood and affect FMR OB H&P: A/P Disposition: 29yo at 29.3wks presents for contractions Will rule out labor. Speculum exam- no appreciable dilation or pooling. Ordered 1L NS & transvaginal cervical length. Will check UA via straight cath. Low suspicion for pyleonephritis as patient is afebrile. Will treat pain with 1g Tylenol. Discussion: Date/Time: 07/03/19253 This H&P was discussed with Dr. Watkins who agrees with the above documentation and plan.
[2019-07-03] MEDS ORDERED: Acetaminophen 500 MG TAB PO SCH (03:00)
--- NOTE | 2019-07-03 03:12 | PDOC.EVN ---
Event Note - Event Note Event Note: OBGYN Attending Faculty attestation 29 yo at 29 weeks 3 days, partient of [facility], here for eval of possible UTI and possible CTX. No VB, no LOF, states stopped progesterone injections recently. No fever here. Ordered: TVUS for CX length Cath UA Will give 1 L LR If CX Length less than 2.5cm, get FFN. SSE without evidence LOF. I have seen the patient at bedside. Please see full H&P by Dr Ling
[2019-07-03 03:37] LABS: Bacteria/HPF None Seen HPF (None Seen); Bilirubin Negative (Negative); Blood, Urine Negative (Negative); Clarity Clear (Clear); Glucose, Urine (Dipstick) Normal (Negative); Leukocyte Negative Leu/uL (Negative); Nitrite Negative (Negative); Protein, Urine (Dipstick) 30 mg/dL (Neg-Trace); RBC/HPF 0-3 HPF (0-3); Squamous Epithelial 0-3 HPF (0-3); WBC/HPF 0-3 HPF (0-3)
[2019-07-03 03:38] LABS: Urine Culture Reflex No No
--- NOTE | 2019-07-03 03:38 | PDOC.EVN ---
Event Note - Event Note Event Note: UA clear
--- NOTE | 2019-07-03 04:35 | PDOC.EVN ---
Event Note - Event Note Event Note: Cervical length >2.5, will discharge home with follow up next week with her OB provider.
--- NOTE | 2019-07-03 04:41 | PDOC.EVN ---
Event Note - Event Note Event Note: CX length by TVUS is between 2.6cm and 3cm. As CX is over 2.5cm, OK for outpatient care at this time as I do not suspect clinically evidence (active) PTL at this time. L&D instructions provided. FFN not ordered as CX length >2.5cm I did not start steroids as I do not suspect delivery within next 2-7 days per CX length but we did recommend she follow up in 48 hrs (Friday) with her provider.
[2019-07-03] MEDS: Lactated Ringer's 1,000 ML IV SCH ×2 (04:45→05:19)
--- NOTE | 2019-07-03 06:04 | PDOC.EVN ---
Event Note - Event Note Event Note: OBGYN Patient feels better. I was planning on her DC to home now, but as she does have that HX of PTB and she states that the cramps are better but still there...I have elected to be conservative and repeat the sono CX length 4 hrs from the first. So, I will recheck that at 0830. And if normal, OK for [facility]
--- NOTE | 2019-07-03 06:43 | PDOC.EVN ---
Event Note - Event Note Event Note: repeat sono same, with less funneling. OK for outpt care
--- NOTE | 2019-07-03 07:46 | ULT ---
PRELIMINARY REPORT/[facility]/EMERGENCY AFTER HOURS PROCEDURE: EXAM: US pelvis transabdominal Limited, cervical length. CLINICAL HISTORY: REPEAT CERVICAL LENGTH, CONTRACTIONS AT 29WKS TECHNIQUE: Real-time ultrasound of the pelvis with image documentation. COMPARISON: None provided. FINDINGS: The cervical length is 2.7 cm. Previously, the closed portion of the cervix measured 3.1 c m. Limited evaluation of the maternal uterus and the fetus. IMPRESSION: See above ELECTRONICALLY SIGNED BY: Raoul Liu MD Jul 03, 2019 7:21:15 AM QUALITY IMPROVEMENT CONSULTANT FINAL REPORT: LIMITED PELVIC ULTRASOUND: PROVIDED CLINICAL HISTORY: Assess cervical length. COMPARISON: 07/03/2019 4:11 AM. FINDINGS/IMPRESSION: Agree with the preliminary interpretation given by [facility]. Transcribed Date/Time: 07/03/2019 8:13 AM
--- NOTE | 2019-07-03 07:50 | ULT ---
PRELIMINARY REPORT/[facility]/EMERGENCY AFTER HOURS PROCEDURE: EXAM: US Obstetrical, Limited. CLINICAL HISTORY: HX CONTRACTIONS AT 29WKS, ECVAL CERVICAL LENGTH. TECHNIQUE: Real-time transvaginal ultrasound of the maternal uterus (limited) with image doc umentation. COMPARISON: None provided. FINDINGS: Intrauterine with cephalic positioning. There is funneling of the internal loss of the cervix. The remainder of the cervix appears closed and measures up to 3.1 cm in length. IMPRESSION: Funneling of the internal os of the cervix suspected with closed portion measuring up to 3.1 cm in length. Limited evaluation of the maternal uterus and fetus. ELECTRONICALLY SIGNED BY: Yves Nix M.D. Jul 03, 2019 5:01:23 AM TELEGRAPH DISPATCHER FINAL REPORT: LIMITED PELVIC ULTRASOUND: PROVIDED CLINICAL HISTORY: Contractions. COMPARISON: None. FINDINGS/IMPRESSION: Agree with the preliminary interpretation given by [facility]. Transcribed Date/Time: 07/03/2019 8:15 AM
== END 2019-07-03 06:45 | disposition home or self-care (01) ==
LOC: L&D/OP 01:44
PROVIDERS: ATTEND Obstetrics & Gynecology
DX: O47.03 False labor before 37 completed weeks of gestation, third trimester (principal); O09.213 Supervision of pregnancy with history of pre-term labor, third trimester; O09.293 Supervision of pregnancy with other poor reproductive or obstetric history, third trimester; Z3A.29 29 weeks gestation of pregnancy; Z79.899 Other long term (current) drug therapy; Z88.0 Allergy status to penicillin; Z88.5 Allergy status to narcotic agent; Z88.8 Allergy status to other drugs, medicaments and biological substances
CPT/HCPCS: 51701; 76856; 76857; 81001; 96360; 96361; 99284

== ENCOUNTER 2025-01-08 11:52 | Emergency (ER) | payer SELFPAY ==
[2025-01-08] MEDS ORDERED: Lidocaine Viscous Sol 2% 15 ml UD Cup ONE (13:30)
[2025-01-08] MEDS ORDERED: diphenhydrAMINE 25 MG CAP ONE (15:54)
== END 2025-01-08 16:15 ==
LOC: ERS 11:52
DX: J04.0 Acute laryngitis (principal); J02.9 Acute pharyngitis, unspecified
CPT/HCPCS: 70360; 71045; 87081; 87428; 87430; 93005